=== PATIENT | male | born 1980 | race Caucasian/White ===

== ENCOUNTER 2023-10-07 12:40 | Outpatient (CLI) | payer OTHER, SELFPAY ==
--- NOTE | ~2023-10-07 | MR_ITS ---
MRI of the brain Clinical History: Multiple sclerosis Technique: Axial and sagittal T1-weighted images were acquired. Sagittal FLAIR images were performed. These were followed by axial T2-weighted, diffusion weighted, gradient, and FLAIR images. Following intravenous administration of 20 cc MultiHance gadolinium, T1-weighted fat-sat imaging was performed in the axial, coronal, and sagittal planes. Findings: No abnormal signal seen in the brain parenchyma. No acute infarct, intracranial hemorrhage, or mass lesion. No white matter lesions evident. Ventricles and subarachnoid spaces are unremarkable. Orbits are unremarkable. Paranasal sinuses and m astoid air cells are clear. Major intracranial flow voids appear intact. Sagittal midline structures are intact. No abnormal postcontrast enhancement identified. IMPRESSION: Normal exam. Reviewed, dictated and finalized at location . IMPRESSION: Normal exam.
== END 2023-10-07 12:41 ==
LOC: MICIMG 12:41
PROVIDERS: PCP Psychiatry & Neurology Neurology; Visit Provider Psychiatry & Neurology Neurology
DX: G35 Multiple sclerosis (principal)
CPT/HCPCS: 70553; A9577

== ENCOUNTER 2023-10-08 08:29 | Outpatient (CLI) | payer OTHER, SELFPAY ==
--- NOTE | 2023-10-10 13:50 | WPDNEUROLOGY ---
Neurology EEG Report General Information Date of Study: 10/08/23 TEST eeg DIAGNOSIS Syncope and collapse CONDITION OF RECORDING awake, drowsy and sleep. EEG NUMBER [id number] CLINICAL HISTORY Patient reports for several years he has been having couple of episodes per month of dizziness with nausea but at times smelling an odd smell and DE JAvu feelings. These episodes last for couple of minutes then he returns back to normal. EEG DESCRIPTION Basic resting occipital frequency consists of low-voltage 8 to 10 hertz per 2nd alpha admixed with low-voltage 15 to 18 hertz per 2nd beta. Good enrico posterior gradient is noted. Hyperventilation produced normal and symmetrical buildup without evidence of any paroxysmal sharp activity. Bilateral symmetrical sleep activity is noted during sleep with symmetrical sleep spindles. Regularly EKG artifact at times noted. Photic stimulation produced normal drive. Non paroxysmal. Nonfocal. Nonlateralizing. IMPRESSION Normal record but normal record does not rule out the possibility of partial complex seizure or else temporal lobe epilepsy clinical correlation recommended.
--- NOTE | 2023-10-11 17:07 | WPDHOLTEREM ---
Holter/Event Monitor Holter/Event Monitor Date of procedure: 10/08/23 Holter/Event Procedure: 48 Hr Holter Monitor Indications: Syncope Conclusion: 1. 48 hour holter monitor on 10/08/23. 2. Underlying rhythm is sinus rhythm. HR range 42-135 bpm; average HR 72 bpm. HR at 42 bpm was at 07:38. HR at 135 bpm was at 11:30. 3. There are 3 premature supraventricular complexes and 3 supraventricular couplets. No supraventricular tachycardia. 4. No premature ventricular complexes. No ventricular tachycardia. 5. No sinoatrial or atrioventricular blocks. No significant pauses greater than 2 seconds. 6. No symptoms available for correlation.
== END 2023-10-08 08:30 | disposition home or self-care (01) ==
PROVIDERS: PCP Psychiatry & Neurology Neurology; Visit Provider Psychiatry & Neurology Neurology
DX: R55 Syncope and collapse (principal); G40.209 Localization-related (focal) (partial) symptomatic epilepsy and epileptic syndromes with complex partial seizures, not intractable, without status epilepticus; I10 Essential (primary) hypertension; Z68.37 Body mass index [BMI] 37.0-37.9, adult; Z87.828 Personal history of other (healed) physical injury and trauma
CPT/HCPCS: 93225; 93226; 95816

== ENCOUNTER 2025-04-18 01:13 | Day surgery (SDC) | payer OTHER, SELFPAY ==
[2025-04-02 14:27] VITALS: BMI 38.5
--- OUTSIDE RECORDS SUMMARY | 2025-04-18 05:29 | XMS_ITS | Clinical Summary ---
Author Organization [facility] Address [address] [place] [address] Care Team Providers Care Dinkey Engineer Name Role Phone Unavailable Primary Care Provider Unavailabl e Source Comments [facility],non-owned Affiliates and Associated Physician Practices is amultiple site organization consisting of ambulatory clinics and hospital sitesin [place], [place], [place] and [place]. This disclosure is being madepursuant to the Care Everywhere program and may not contain all information available regarding this patient. Last updated 18.[facility] Allergies No known active allergies Medications * Be aware that medications may not be up to date on this document. Alwaysverify current medications with the patient. Medication Sig Dispense Quantity Refills Last Filled Start D ate End Date Status ALLOPURINOL PO Activ e Active Problems No known active problems Social History Tobacco Use Types Packs/Day Years Used Date Smoking Tobacco: Never Sex and Gender Information Value Date Recorded Sex Assigned at Not on file Legal Sex Male 1:48 PM CDT Gender Identity Not on file Sexual Orientation Not on file Last Filed Vital Signs Vital Sign Reading Time Taken Comments Blood Pressure 122/70 2016 2:16 PM CDT Pulse 109 2016 2:16 PM CDT Temperature 37.6 C (99.6 F) 2016 2:16 PM CDT Respiratory Rate 18 2016 2:16 PM CDT Oxygen Saturation 96% 2016 2:16 PM CDT Inhaled Oxygen Concentration - - Weight 111.1 kg (245 lb) 2016 2:16 PM CDT Height 172.7 cm (5' 8) 2016 2:16 PM CDT Body Mass Index 37.25 2016 2:16 PM CDT Plan of Treatment Health Maintenance Due Date Last Done Comments COLOGUARD (AGES 45-75) - COL ON CA SCREENING 1979 COLON MONITORING 1979 COLONOSCOPY - COLON CA SCREENING 1979 CT COLONOGRAPHY - COLON CA SCREENING 1979 Colorectal Cancer Screening 1979 FIT - COLON CA SCREENING 1979 FLEX SIG - COLON CA SCREENING 1979 LIPID TESTING 1979 HIV SCREENING 10/22/1994 HEPATITIS C SCREENING 10/18/1997 DTAP/TDAP/TD VACCINES (1 - Tdap) 10/22/1998 HEPATITIS B VACCINE (1 of 3 - 19+ 3-dose series) 10/22/1998 HPV VACCINE (1 - 3-dose SCDM series) 10/22/2006 DEPRESSION SCREENING 05/31/2024 COVID-19 VACCINE (1 - 2023-2 5 season) 2025 INFLUENZA VACCINE (#1) 2025 ZOSTER VACCINE (1 of 2) 10/22/2029 HIB VACCINE Aged Out No longer eligi ble based on patient's age to complete this topic MENINGOCOCCAL (Group B) VACC INE SHARED DECISION-MAKING Aged Out No longer eligibl e based on patient's age to complete this topic MENINGOCOCCAL GROUPS A/C/Y/W VACCINE Aged Out No longer eligible b ased on patient's age to complete this topic PNEUMOCOCCAL VACCINE Aged Out No long er eligible based on patient's age to complete this topic Insurance
[2025-04-18 07:41] VITALS: BP 138/105; PULSE 95; RESP 18; TEMP 36.3; O2SAT 96
[2025-04-18] MEDS: LACTATED RINGERS 1,000 ML 150 ML IV CONT (07:52)
--- NOTE | 2025-04-18 08:31 | WPDANESEPPF ---
Anes - Initial Pre Proc Eval Procedure: Operation Date: 04/18/25 09:00 Proposed Procedures p Screening Colonoscopy - Cipriano Caceres MD Date/Time: 04/18/25 08:31 Surgeon: Cipriano Caceres MD Pre Op Diagnosis: Screening Patient Data Age: 44 Gender: M Height: 1.73 m Weight: 120 kg Last Vital Signs Temp 97.4 F L 04/18/25 07:41 Pulse 95 04/18/25 07:41 Resp 18 04/18/25 07:41 BP 138/105 H 04/18/25 07:41 Pulse Ox 96 04/18/25 07:41 O2 Del Method Room Air 04/18/25 07:41 Allergies Allergy/AdvReac Type Severity Reaction Status Date / Time No Known Allergies Allergy Verified 04/18/25 07:40 Home Medications ?Medication ?Instructions ?Recorded ?Confirmed ?Type febuxostat 80 mg tablet 80 mg PO DAILY #30 tabs 10/02/24 04/02/25 Rx Patient hx anesthesia problems: none Family hx anesthesia problems: none Results Review: All pre-operative results and documents have been reviewed as part of the pre-operative evaluation. [facility] Past Medical History Medical History Screening for colon cancer Body mass index (BMI) of 40.1 to 44.9 in adult Seizure disorder, complex partial BMI 36.0-36.9,adult Confusion Obesity (BMI 30-39.9) BMI 37.0-37.9, adult Iron deficiency anemia, unspecified Family History Family History Mother Patient's mother is in good health Father Patient's father is in good health Grandparent Carcinoma of colon Family history of Alzheimer's disease Family history of lung cancer Social History Social History Years smoked: 6 Smoking status: Former smoker Tobacco type: cigarettes Smoking end date: 05/31/12 Alcohol intake: never Substance use: never Substance use type: does not use Do You Feel Safe in your Home?: Yes Lack of Transportation: No Lack of Food: Never True Current Housing: I Have Housing Concerned About Future Housing: No Difficulty Paying Gas/Electric Bills: No Difficulty Paying for Meds: No Currently Unemployed: No Education: High School Diploma/GED Difficulty w/ Childcare or Family Care: No Living arrangements: alone Spiritual care concerns: No Anes - Eval Final PreProcedure Day of Procedure 04/18/25 08:31 Patient weight: morbidly obese Lungs: normal air movement Airway: Mallampati scale class II and special considerations (Missing lower R tooth. ) Neurological: alert and oriented Last oral intake: >/= 8 hours ASA classification: III Emergent: no Anesthetic plan: proceed Anesthesia type and monitoring: general GIVS and standard monitoring Results Review: All pre-operative results and documents have been reviewed as part of the pre-operative evaluation. BMI 40. Informed Consent: The patient's anesthetic plan and its attendant risks and benefits were discussed with the patient/family/POA. Questions were solicited and answers provided to the satisfaction of the patient/family/POA.
--- NOTE | 2025-04-18 08:56 | PM.IMHP ---
H&P: HPI History of Present Illness Date/Time: 04/18/25 08:56 Chief Complaint: Screening colonoscopy Narrative: This is the patient's first colonoscopy. There are no GI symptoms and there is no family history of colorectal cancer. Review of Systems Review of Systems: All systems reviewed & are unremarkable except as noted in HPI and below PMFSH Past Medical History Medical History Screening for colon cancer Body mass index (BMI) of 40.1 to 44.9 in adult Seizure disorder, complex partial BMI 36.0-36.9,adult Confusion Obesity (BMI 30-39.9) BMI 37.0-37.9, adult Iron deficiency anemia, unspecified Family History Family History Mother Patient's mother is in good health Father Patient's father is in good health Grandparent Carcinoma of colon Family history of Alzheimer's disease Family history of lung cancer Social History Social History Years smoked: 6 Smoking status: Former smoker Tobacco type: cigarettes Smoking end date: 05/31/12 Alcohol intake: never Substance use: never Substance use type: does not use Do You Feel Safe in your Home?: Yes Lack of Transportation: No Lack of Food: Never True Current Housing: I Have Housing Concerned About Future Housing: No Difficulty Paying Gas/Electric Bills: No Difficulty Paying for Meds: No Currently Unemployed: No Education: High School Diploma/GED Difficulty w/ Childcare or Family Care: No Living arrangements: alone Spiritual care concerns: No Meds Home Medications and Allergies Home Medications ?Medication ?Instructions ?Recorded ?Confirmed ?Type febuxostat 80 mg tablet 80 mg PO DAILY #30 tabs 10/02/24 04/02/25 Rx Allergies Allergy/AdvReac Type Severity Reaction Status Date / Time No Known Allergies Allergy Verified 04/18/25 07:40 Vital Signs Vital Signs - 24 hr 04/18/25 07:41 Temperature 97.4 F L Pulse Rate 95 Respiratory Rate 18 Blood Pressure 138/105 H Pulse Oximetry 96 Oxygen Delivery Room Air Exam Const: General: cooperative and healthy appearing Resp: Effort & Inspection: normal respiratory effort and able to speak in complete sentences Auscultation: clear to auscultation bilaterally Cardio: Rate: regular rate Rhythm: regular rhythm GI: Inspection: normal to inspection GI Palp: No No hepatosplenomegaly present Auscultation: normal bowel sounds Rectal Exam: deferred Skin: General skin exam: normal color Psych: Appearance: grossly normal Mental Status: mental status grossly normal Assessment and Plan Assessment and plan (1) Screening for colon cancer: Code(s): Z12.11 - Encounter for screening for malignant neoplasm of colon Status: Acute Assessment and Plan: The patient is deemed a good candidate for the procedure. Consent signed. Will proceed.
--- NOTE | 2025-04-18 09:14 | S_PTH ---
PATIENT: Mathew Tabares LOC: [facility] #:[id number] AGE/SX: 44/M ROOM: RE04/18/[address]: Cipriano Caceres MD : 1980 BED: DIS: 04/18/2025 SPEC #: [id number] RECD: 04/18/25 10:18 STATUS: KATHERINE RERichelle #: [id number] STEPHANIE: 04/18/25 09:[address]: Cipriano Caceres DEPT: [facility] Surgical RECD BY: Margarita Schultz ENTERED: 04/18/25 10:18 SP TYPE: Surgical OTHR DR: Philippe Gates MD Tissues: A - Colon Polypectomy Procedures: Hematoxylin and Eosin Stain Gross and Microscopic Level 4
[2025-04-18 09:15] VITALS: BP 119/74; PULSE 85; RESP 24; O2SAT 95
[2025-04-18 09:25] VITALS: BP 130/82; PULSE 76; RESP 21; O2SAT 97
[2025-04-18 09:35] VITALS: BP 123/90; PULSE 74; RESP 20; O2SAT 97
== END 2025-04-18 09:42 | disposition home or self-care (01) ==
PROVIDERS: PCP Family Medicine; Referring Provider Nurse Practitioner Family; Visit Provider Internal Medicine Gastroenterology
PROC: 0DJD8ZZ Inspection of Lower Intestinal Tract, Via Natural or Artificial Opening Endoscopic (ICD-10-PCS; CPT 45378; principal; 2025-04-18 09:00)
DX: Z12.11 Encounter for screening for malignant neoplasm of colon (principal); D12.0 Benign neoplasm of cecum; D50.9 Iron deficiency anemia, unspecified; G40.209 Localization-related (focal) (partial) symptomatic epilepsy and epileptic syndromes with complex partial seizures, not intractable, without status epilepticus; E66.9 Obesity, unspecified; Z68.41 Body mass index [BMI] 40.0-44.9, adult; Z87.891 Personal history of nicotine dependence; Z80.0 Family history of malignant neoplasm of digestive organs; Z80.1 Family history of malignant neoplasm of trachea, bronchus and lung
CPT/HCPCS: 45385; 88305; J2003; J2704; J7120